=== PATIENT | male | born 1950 | race Caucasian/White ===

== ENCOUNTER 2020-08-31 07:57 | Outpatient (CLI) | payer MEDICARE ==
[~2020-08-31 07:57] MED LIST: AMLO10TA8 PO; LISI-167 PO
== END 2020-08-31 23:59 | disposition home or self-care (01) ==
LOC: CFH 07:57
PROVIDERS: ATTEND Radiology Diagnostic Radiology
DX: I70.0 Atherosclerosis of aorta (principal); Z87.891 Personal history of nicotine dependence
CPT/HCPCS: 76706